=== PATIENT | female | born 1970 | race African-American/Black ===

== ENCOUNTER 2016-10-07 16:01 | Emergency (ER) | payer MEDICAID ==
[~2016-10-07] VITALS: Ht 180.3 cm; Wt 80.0 kg
[~2016-10-07 16:01] MED LIST: BACL10TA PO; DICL75 PO
[2016-10-07 16:02] VITALS: BP 126/69; PULSE 66; RESP 20; TEMP 98.5; O2SAT 99
--- NOTE | 2016-10-07 16:43 | PD ---
HPI Chief Complaint: Pain: Acute or Chronic Time Seen by Provider: 16:34 Travel History International Travel<30 days: No Contact w/Intl Traveler<30days: No Traveled to known affect area: No History of Present Illness HPI This is a 45-year-old female who presents to the emergency department with left elbow pain. She says this been going on for a month, it's constant, moderate severity and focally painful right at the corner of her elbow. She denies any repetitive use of the left arm. She says she is right handed. She does clean hotels for a living. She denies any injury to it. She's not had any swelling, fevers or chills and denies any IV drug use. PFSH Past Medical History Diminished Hearing: No Genitourinary: Yes (KIDNEY STONES) Immunizations Current: Yes ?: Unknown Past Surgical History Cholecystectomy: Yes Social History Alcohol Use: No Tobacco Use: Yes (1 DAY) Substance Use: No Allergies-Medications (Allergen,Severity, Reaction): Coded Allergies: No Known Allergies (Verified , 10/07/16) Reported Meds & Prescriptions Reported Meds & Active Scripts Active No Active Prescriptions or Reported Medications Review of Systems General / Constitutional: No: Fever, Chills Gastrointestinal: No: Nausea, Vomiting Physical Exam Narrative GENERAL: Well-appearing, no acute distress, nontoxic SKIN: Warm and dry. HEAD: Atraumatic. Normocephalic. ENT: No nasal bleeding or discharge. Moist mucous membranes Vascular: 2+ left radial pulse with normal capillary refill MUSCULOSKELETAL: Tender to palpation over the left lateral epicondyle with some pain with range of motion no pain with passive range of motion of the left elbow , no joint effusion NEUROLOGICAL: Awake and alert. No obvious cranial nerve deficits. Motor grossly within normal limits. Normal speech. PSYCHIATRIC: Appropriate mood and affect; insight and judgment normal. Data Data Last Documented VS Vital Signs Date Time Temp Pulse Resp B/P Pulse Ox O2 Delivery O2 Flow Rate FiO2 10/07/16 16:02 98.5 66 20 126/69 99 Room Air Orders Elbow, Complete (4 Vws) (10/07/16 ) Naproxen Sodium (Anaprox Ds) (10/07/16 16:45) MDM Medical Decision Making Medical Screen Exam Complete: Yes Emergency Medical Condition: Yes Differential Diagnosis Arthritis, muscle sprain, epicondylitis, bursitis Narrative Course This is a 45-year-old female who presents to the emergency department with left elbow pain that's been going on for 1 month. She is focally tender over the lateral upper condyle. She has no joint effusion and she has reasonable range of motion of the joint. I suspect she has lateral epicondylitis. She was advised to rest her arm, take anti-inflammatories and she was given information regarding counter bracing. I think patient is safe for discharge and follow-up as needed with his health. Diagnosis Primary Impression: Lateral epicondylitis of elbow Referrals: [facility] Patient Instructions: General Instructions Additional Instructions: If you develop fever, chills, increasing swelling or pain of your left elbow return to the emergency room. Follow-up with his health a few not improved in one week. Apply ice, rest and take anti-inflammatories for pain and obtain a counter brace. Med/Other Pt SpecificInfo: Prescription(s) given Scripts Elbow Brace 1 Mis Mis #1 Ea .route As Directed Prov:Yohana Lee MD 10/07/16 Naproxen 500 Mg [id number] Mg PO BID PRN (PAIN SCALE 4 TO 10) #20 TAB Ref 0 Prov:Yohana Lee MD 10/07/16 Disposition: 01 DISCHARGE HOME Condition: Stable Yohana Lee MD Oct 07, 2016 16:43
[2016-10-07] MEDS: NAPROXEN SODIUM 550 MG TAB PO ONE ×2 (16:44→17:04)
[2016-10-07] MEDS ORDERED: NAPR500T PO (16:46)
[2016-10-07] MEDS ORDERED: [UNRECOGNIZED DRUG - SUPPLY] (16:48)
--- NOTE | 2016-10-07 16:55 | RADRPT ---
EXAM DATE/TIME: 10/07/2016 16:48 [facility] COMPARISON: No previous studies available for comparison. INDICATIONS : Complains of left elbow pain, no known trauma. MEDICAL HISTORY : None. SURGICAL HISTORY : None. ENCOUNTER: Initial ACUITY: 1 month PAIN SCORE: 10/10 LOCATION: Left elbow FINDINGS: 4 views of left elbow. Bone alignment within normal limits. No evidence of fracture. No evidence of joint narrowing. No evidence of joint effusion. CONCLUSION: Left elbow series within normal limits. Matt Chapa MD on October 07, 2016 at 16:53 Board Certified Radiologist. This report was verified electronically.
== END 2016-10-07 17:23 | disposition home or self-care (01) ==
LOC: NEPD 16:01
DX: M77.12 Lateral epicondylitis, left elbow (principal); Z72.0 Tobacco use
CPT/HCPCS: 73080; 99283